=== PATIENT | male | born 1950 | race African-American/Black ===

== ENCOUNTER 2019-10-01 11:12 | Inpatient (IN) | payer OTHER ==
[~2019-10-01] VITALS: Ht 180.3 cm; Wt 82.3 kg
[2019-10-01 11:12] VITALS: BP 137/65
[2019-10-01 11:44] LABS: ABSOLUTE NEUTROPHILS 2.7 thou/uL (1.4-8.2); BASOPHILS 1.2 % (0.0-2.0); MCH 30.9 pg (26.0-34.0); MCHC 32.6 g/dL (28.0-37.0); MCV 94.7 fL (80.0-100.0); MONOCYTES 8.5 % (1.0-8.0); PLATELET COUNT 176 thou/uL (150-400); POLYS 51.3 % (36.0-66.0); RBC 4.54 mil/uL (4.50-6.00); RDW 13.5 % (10.5-14.5); WBC 5.3 thou/uL (4.0-11.0)
[2019-10-01 12:07] LABS: ANION GAP 10 mmol/L (7-16); BUN 20 mg/dL (7-18); CALCIUM 9.7 mg/dL (8.5-10.1); CHLORIDE 101 mmol/L (98-107); CO2 25 mmol/L (21-32); CREATININE 1.5 mg/dL (0.7-1.3); GLUCOSE 352 mg/dL (74-106); POTASSIUM 4.5 mmol/L (3.5-5.1); SODIUM 136 mmol/L (136-145)
[2019-10-01 12:17] LABS: SGOT 16 U/L (15-37); SGPT 27 U/L (30-65); TOTAL BILIRUBIN 0.5 mg/dL (<0.1-1.0); TOTAL PROTEIN 7.6 g/dL (6.4-8.2); TROPONIN-I <0.06 ng/mL (<0.06)
[2019-10-01] MEDS ORDERED: CRESTOR40 MG PO (12:36)
[2019-10-01] MEDS ORDERED: AMARYL4 MG PO (12:36)
[2019-10-01] MEDS ORDERED: LISINOPRIL2.5 MG PO (12:36)
[2019-10-01] MEDS ORDERED: ASA81BEC PO (12:38)
[2019-10-01] MEDS ORDERED: PLAVIX 75 MG TA75 MG PO (12:38)
[2019-10-01] MEDS ORDERED: METFORMIN HCL500 M3 PO (12:38)
[2019-10-01 12:53] VITALS: BP 151/76
[2019-10-01 13:01] VITALS: BP 123/67
--- NOTE | 2019-10-01 13:50 | NUR ---
REC PT AROUND 1330, A&0X4, AMB STEADY, NO CP AT THIS TIME, DENIES ANY KIND OF CHRONIC PAIN. ROOM AIR, TELE MONITORED. SEE SEPARATE INTERVENTIONS FOR ASSESSMENTS. WRAPPED RAC IV TO PREVENT IT FROM DISLODGING. PT TIRED YET APPEARS IN GOOD SPIRITS. WILL CONTINUE TO MONITOR
[2019-10-01 14:00] VITALS: BP 97/75
[2019-10-01 16:00] VITALS: BP 105/65
--- NOTE | 2019-10-01 16:49 | NUR ---
DIZZINESS: DAUGHTER REPORTS PT'S SPOUSE HAS MENTIONED PT HAS HAD SOME BOUTS OF DIZZINESS. PT AMB [facility]AD[facility], YET INSTRUCTED TO SIT AT [facility] AND CALL SHOULD HE HAVE ANY DIZZINESS TODAY AND WE'D AMBULATE WITH HIM. DAUGHTER GARY HAS OUR MAIN NUMBER AND LIKES UPDATES ON HER FATHER. GAVE HER INFO W/HIS PERMISSION. NO CP THUS FAR, NOR DIZZINESS. WILL CONTINUE TO MONITOR
[2019-10-01 20:59] VITALS: BP 113/60
[2019-10-02] VITALS (12 sets, daily range): BP systolic 116–134; BP diastolic 54–68
--- NOTE | 2019-10-02 05:42 | NUR ---
ASSUME CARE 1900. PT/VITALS STABLE. DENIES ANY CHEST PAIN AT THIS TIME. TOLERATES ACTIVITY WELL. NO SIGNS OF DISTRESS OR SOA NOTED. ASSESSMENT CHARTED. PROGRESSING WELL WITH POC. PLAN IS POSSIBLE CARDIAC CATH TODAY. WILL CONTINUE TO MONITOR ND FOLLOW WITH POC
[2019-10-02 05:58] LABS: HEMATOCRIT 38.3 % (42.0-52.0); HEMOGLOBIN 13.1 gm/dL (14.0-18.0); MCH 31.9 pg (26.0-34.0); MCHC 34.1 g/dL (28.0-37.0); MCV 93.4 fL (80.0-100.0); RBC 4.1 mil/uL (4.50-6.00); RDW 13.6 % (10.5-14.5); WBC 6.4 thou/uL (4.0-11.0)
[2019-10-02 06:27] LABS: CALCIUM 8.6 mg/dL (8.5-10.1); CREATININE 1.3 mg/dL (0.7-1.3); POTASSIUM 4.1 mmol/L (3.5-5.1)
--- NOTE | 2019-10-02 14:01 | NUR ---
ASSESSMENT: CM REVIEWED CHART AND SPOKE WITH PATIENT. PT IS ALERT AND ORIENTED X4. PT REPORTS LIVING IN A HOUSE WITH HIS . PT IS FULLY INDEPENDENT WITH ADLS AND AMBULATION. PT REPORTS THAT HE HAS A GRAB BAR IN THEIR SHOWER. PT STATES HE HAS NEVER HAD HH OR BEEN TO A SNF. PT WAS ADMITTED WITH CP AND CARDIOTHORACIC SURGERY IS CONSULTED. CM WILL CONTINUE TO FOLLOW TO ASSIST NEEDED.
--- NOTE | 2019-10-02 14:07 | 2DMMODE ---
[facility] [address] [place] [address] 2 D/M-MODE ECHOCARDIOGRAM Name: KARO DUQUE Room #: 218-P ADM IN M.R.#: [id number] Admission: 10/01/19 Attend Phys: Rosas Hughes MD Discharge: Date of : 50 Report #: [id number] THIS REPORT FOR: cc: Sukhi Seo Terry D. DO Lammoglia, Francisco J. MD ~ APPROVED REPORT Study performed: 10/02/2019 12:43:03 EXAM: Comprehensive 2D, Doppler, and color-flow Echocardiogram Patient Location: Bedside Room #: 218 Status: routine BSA: 2.02 HR: 51 bpm BP: 122/68 mmHg Rhythm: NSR Other Information Study Quality: Good/patient flat on back s/p heart cath. Indications CAD Chest Pain Hx: Stent, HTN, HLP, DM, CVA. 2D Dimensions RVDd: 33.57 mm IVSd: 9.60 (7-11mm) LVOT Diam: 21.61 (18-24mm) LVDd: 48.44 mm PWd: 9.91 (7-11mm) Ascending Ao: 28.78 (22-36mm) LVDs: 31.12 (25-40mm) Aortic Root: 32.44 mm Volumes Left Atrial Volume (Systole) Single Plane 4CH: 51.64 mL Single Plane 2CH: 51.09 mL LA ESV Index: 28.00 mL/m2 Aortic Valve AoV Peak Lorenzo.: 1.15 m/s AO Peak Gr.: 5.33 mmHg LVOT Max P.62 mmHg [facility] [address] [place] [address] 2 D/M-MODE ECHOCARDIOGRAM Name: KARO DUQUE Room #: 218-P [facility]#: [id number] Admission: 10/01/19 Attend Phys: Rosas Hughes MD Discharge: Date of : 50 Report #: [id number] LVOT Max V: 0.95 m/s DARRYL Vmax: 3.02 cm2 Mitral Valve E/A Ratio: 1.2 MV Decel. Time: 203.07 ms MV E Max Lorenzo.: 0.73 m/s MV A Lorenzo.: 0.60 m/s MV PHT: 58.89 ms IVRT: 69.20 ms Pulmonary Valve PV Peak Lorenzo.: 1.11 m/s PV Peak Gr.: 4.89 mmHg Pulmonary Vein P Vein S: 0.67 m/s P Vein A: 0.35 m/s P Vein D: 0.44 m/s P Vein A Dur.: 143.0 msec P Vein S/D Ratio: 1.52 Tricuspid Valve TR Peak Lorenzo.: 2.03 m/s RAP Estimate: 5.00 mmHg TR Peak Gr.: 17.00 mmHg PA Pressure: 22.00 mmHg Left Ventricle The left ventricle is normal size. There is normal LV segmental wall motion. There is normal left ventricular wall thickness. Left ventricular systolic function is normal. LVEF is 55-60%. The left ventricular diastolic function is normal. Right Ventricle The right ventricle is normal size. The right ventricular systolic function is normal. Atria The left atrium size is normal. The right atrium size is normal. Aortic Valve The aortic valve is normal in structure. Mildly thickened and calcified leaflets. No aortic regurgitation is present. There is no aortic valvular stenosis. Mitral Valve The mitral valve is normal in structure. Mild to moderate mitral regurgitation. [facility] [address] [place] [address] 2 D/M-MODE ECHOCARDIOGRAM Name: KARO DUQUE Room #: 218-P [facility] IN [facility].#: [id number] Admission: 10/01/19 Attend Phys: Rosas Hughes MD Discharge: Date of : 50 Report #: [id number] Tricuspid Valve The tricuspid valve is normal in structure. Trace tricuspid regurgitation. Estimated PAP is 20-25mmHg. Pulmonic Valve The pulmonary valve is normal in structure. Mild pulmonic regurgitation. Great Vessels The aortic root is normal in size. The ascending aorta is normal in size. IVC is normal in size and collapses >50% with inspiration. Pericardium There is no pericardial effusion. <Conclusion> The left ventricle is normal size. LVEF is 55-60%. The aortic valve is normal in structure. Mildly thickened and calcified leaflets. The mitral valve is normal in structure. Mild to moderate mitral regurgitation. The tricuspid valve is normal in structure. Trace tricuspid regurgitation. Estimated PAP is 20-25mmHg. The pulmonary valve is normal in structure. Mild pulmonic regurgitation. There is no pericardial effusion. <ELECTRONICALLY SIGNED> By: Anupam Villasenor MD 10/02/19 1406 1406 140 Anupam Villasenor MD /INF
[2019-10-02 14:57] LABS: APTT 25.4 Seconds (24.5-32.8); INR 1.1
--- NOTE | 2019-10-02 19:45 | NUR ---
A/O, calm and pleasant; catheter done, no signs of bleeding, tolerated well; patient stayed in bed flat until 3:30pm. reported blood in urine, the night nurse is aware.
[2019-10-02 21:38] LABS: URINE BILIRUBIN NEGATIVE (Negative); URINE BLOOD 3+ (Negative); URINE CLARITY CLEAR; URINE COLOR YELLOW; URINE GLUCOSE-RANDOM* NEGATIVE (Negative); URINE KETONES NEGATIVE (Negative); URINE NITRITE-REFLEX NEGATIVE (Negative); URINE PROTEIN (DIPSTICK) NEGATIVE (Negative); URINE SPECIFIC GRAVITY 1.015 (1.005-1.035); URINE UROBILINOGEN 0.2 E.U./dl (0.2-1.0)
[2019-10-02 22:05] LABS: URINE LEUKOCYTES-REFLEX 2+ (Negative)
[2019-10-02 22:07] LABS: GLYCOHEMOGLOBIN (HGB A1C) 8.2 % (4.8-5.6)
[2019-10-02 22:17] LABS: BACTERIA-REFLEX >30 Many /HPF (None Seen); CASTS None Seen /LPF (None Seen); CRYSTALS None Seen /LPF (None Seen); SQUAMOUS None Seen /LPF (0-3); URINE WBC-REFLEX 6-15 Few /HPF (0-5)
[2019-10-03 04:05] VITALS: BP 115/58
[2019-10-03 05:29] LABS: HEMATOCRIT 41.7 % (42.0-52.0); HEMOGLOBIN 14.3 gm/dL (14.0-18.0); MCH 31.9 pg (26.0-34.0); MCHC 34.2 g/dL (28.0-37.0); MCV 93.3 fL (80.0-100.0); RBC 4.47 mil/uL (4.50-6.00); RDW 13.2 % (10.5-14.5); WBC 7.1 thou/uL (4.0-11.0)
[2019-10-03 05:45] LABS: ANION GAP 6 mmol/L (7-16); BUN 17 mg/dL (7-18); CALCIUM 9.3 mg/dL (8.5-10.1); CHLORIDE 107 mmol/L (98-107); CO2 26 mmol/L (21-32); CREATININE 1.3 mg/dL (0.7-1.3); GLUCOSE 129 mg/dL (74-106); POTASSIUM 4.3 mmol/L (3.5-5.1); SODIUM 139 mmol/L (136-145); TROPONIN-I <0.06 ng/mL (<0.06)
[2019-10-03 07:00] VITALS: BP 138/59
--- NOTE | 2019-10-03 07:55 | NUR ---
ASSUME CARE 1900. PT/VITALS STABLE. DENIES ANY PAIN. TOLERATES ACTIVITY WELL. CADIAC CATH DONE WITH NO ITERVENTION. CABG NEEDED. PLAN IS FOR PT TO FOLLOW OUTPT WITH CARDIOTHORACIC SURGERY. POSIBLE DISCHARGE TODAY. WILL CONITNUE TO MONITOR AND FOLLOW WITH POC
[2019-10-03] MEDS ORDERED: TOPROL XL25 MG PO (10:46)
[2019-10-03 11:50] VITALS: BP 138/59
[2019-10-03 12:00] VITALS: BP 118/71
--- NOTE | 2019-10-03 20:17 | NUR ---
ASSUMED CARE OF PATIENT AT 0700. PATIENT IS A&O X 4. ASSESSMENT COMPLETED. TELE STRIPS PRINTED AND PLACED IN CHART. PATIENT DENIES ANY CHEST PAIN.PATIENT UP AD MARY BETH AND DENIES ANY PAIN. PATIENT RIGHT GROIN SITE IS CLEAR OF DRAINAGE, PAIN OR HEMATOMA. PATIENT TO D/C TODAY AND SEE DR. MEDEL OUTPATIENT TO FUTURE SCHEDULING OF CABG PROCEDURE. DISCHARGE PAPERWORK SIGNED. IV AND TELE REMOVED. PATIENT'S PICKED UP PATIENT AT ER ENTRANCE WHERE PATIENT WAS TAKEN VIA WHEELCHAIR.
--- NOTE | 2019-10-09 15:35 | HC ---
[facility] [place] [address] CONSULTATION Name: KARO DUQUE Room #: 218-P [facility] IN .R.#: [id number] Admission: 10/01/19 Attend Phys: Rosas Hughes MD Discharge: 10/03/19 Date of : 50 Report #: [id number] THIS REPORT FOR: cc: Sukhi Seo,Alex Wilder MD ~ CC: Rosas Seo DATE OF SERVICE: 10/02/2019 We were asked to see the patient by Dr. Villasenor. HISTORY OF PRESENT ILLNESS: The patient is a 69-year-old with coronary artery disease. The patient presents with new onset of exertional angina. The patient states that approximately 2 weeks ago, he had some chest discomfort when walking. The patient had a recrudescence of that same pain yesterday when fertilizing his lawn. The patient denies having had symptoms at rest. The patient denies having had symptoms prior to this. Pain was a mid-sternal discomfort that radiated down the left arm. No shortness of breath associated with it. We note that cardiac catheterization was done today and that shows a 50% left main coronary artery disease as well as 80% LAD, 99% circumflex and a 50% right coronary stenoses. Left ventricular function is satisfactory by echo. PAST MEDICAL HISTORY: Significant for hypertension. The patient has type 2 diabetes mellitus and hyperlipidemia. MEDIATIONS AT HOME: Rosuvastatin, lisinopril, glimepiride, metformin, Plavix, aspirin. ALLERGIES: HE IS ALLERGIC TO ATORVASTATIN, A RASH HAS OCCURRED. Previously, the patient had a stroke approximately 1 year ago that sounds like it was a vertebrobasilar or posterior circulation problem. The patient does not seem to have any important residual from this, but he was put on Plavix at that time. The patient also had a stent placed in the coronary arteries, approximately 10 years ago at [facility]. REVIEW OF SYSTEMS: CONSTITUTIONAL: Negative for fever, chills, weight change. EYES: Negative for vision change. HEENT: Negative for ear pain, hearing loss, headache. CARDIAC: As mentioned, chest pain, no palpitations. RESPIRATORY: Negative for cough or shortness of breath. [address] [address] CONSULTATION Name: KARO DUQUE Room #: 218-P [facility] IN [facility].#: [id number] Admission: 10/01/19 Attend Phys: Rosas Hughes MD Discharge: 10/03/19 Date of : 50 Report #: [id number] GASTROINTESTINAL: Negative for abdominal pain, nausea, vomiting blood. GENITOURINARY: Negative for urgency, frequency, or blood. The patient states that he had prostate surgery at [facility] approximately 10 years ago for cancer according to the patient. MUSCULOSKELETAL: No bone or joint pain. SKIN: No rash or infection. NEUROLOGIC: No new motor, sensory dysfunction. PHYSICAL EXAMINATION: GENERAL: The patient is lying in bed after his cardiac catheterization. VITAL SIGNS: Temperature 36.1, heart rate 60, respiratory rate 16, blood pressure 120/54. HEENT: No scleral icterus, no arcus. NECK: No mass, no bruit. CHEST: Clear. HEART: Rhythm is regular with occasional PVC. ABDOMEN: Soft, no mass. EXTREMITIES: No clubbing, cyanosis or edema. SKIN: No rash or infection. VASCULAR: 2+ popliteal pulses bilaterally, 1+ right posterior tibial, 2+ left posterior tibial. No obvious saphenous vein problems. MUSCULOSKELETAL: No bone or joint asymmetry or deformity. NEUROLOGIC: No obvious motor or sensory dysfunction. PSYCHIATRIC: The patient is oriented and appropriate, answers questions and has pleasant affect. IMPRESSION: The patient has 3-vessel coronary artery disease, exertional angina. He has been on Plavix up to this point. No obvious rest pain. I will review with Dr. Villasenor what his plans are with either medical management with surgery for progression of symptoms or if we should stop the Plavix and plan for interval surgery this admission. In any event, the risks and details of coronary artery bypass surgery were discussed with the patient. Risks include, but are not limited to, bleeding, infection, anesthesia risks, heart and lung problems, stroke, and . Options and alternatives were reviewed. The patient understands all of this and will exceed to our recommendations. We will proceed with ordering our typical preoperative studies so that we can be prepared in either event, we will also order a P2Y12 test to see if the patient is a responder to help us decide if we plan surgery, how long we need to wait. Thank you for the consult. <ELECTRONICALLY SIGNED> By: Alex Gamez MD 10/09/19 1535 1335 1412 Alex Gamez MD /nt
--- NOTE | 2019-10-13 19:15 | CATHLAB ---
[facility] [place] [address] INVASIVE PROCEDURE REPORT Name: KARO DUQUE Room #: 218-P [facility] IN .R.#: [id number] Admission: 10/01/19 Attend Phys: Rosas Hughes MD Discharge: 10/03/19 Date of : 50 Report #: [id number] THIS REPORT FOR: cc: Sukhi Seo Terry D. DO Lammoglia, Francisco J. MD ~ APPROVED REPORT Study performed: 10/02/2019 10:30:20 Patient Details Patient Status: In-Patient Room #: The patient is a 69 year-old male Event Personnel Anupam Villasenor Hemotherapist, Mahsa Ang RN RN, Aurora Pate Jackson, Sherra RTCésar Monitor Procedures Performed Art Access - R femoral artery* Left Heart Cath w/or w/o Coronaries [id number] [facility] [address] Initial Mod Sed Same Phys/QHP Gr 035303 86645 Mod Sed Same Phys/QHP Ea 018000 Hemostasis with Manual pressure, supervision of conscious sedation Indication Unstable angina (>24 hrs to = 48 hrs), Chest pain Risk Factors Coronary Artery Disease Previous Procedures/Diagnoses Previous PCI Procedure Narrative The Right Groin^ was infiltrated with 1% Lidocaine subcutaneous anesthesia. A PINNACLE 4FR Sheath #[id number] sheath was inserted into the RFA^. Coronary angiography was performed using coronary diagnostic catheters. The right coronary system was accessed and visualized with a JR4 catheter. The left coronary system was accessed and visualized with a JL4 catheter. The left ventricle was accessed and visualized with a JR4 catheter. Hemostasis was obtained with manual pressure following sheath removal without any complications. The patient tolerated the procedure well and there were no complications associated with the procedure. There was no [facility] [address] [place] [address] INVASIVE PROCEDURE REPORT Name: KARO DUQUE Room #: 218-P [facility]#: [id number] Admission: 10/01/19 Attend Phys: Rosas Hughes MD Discharge: 10/03/19 Date of : 50 Report #: [id number] hematoma. Intraoperative Conscious Sedation Sedation start time: 1045 Case end Time: 1114 Versed 2 mg Fluoro Time: 5.8 minutes Dose: DAP 7199.00 cGycm2 1279 mGy Contrast Type and Amount: Omnipaque 45 ml Coronary Angiography The patient's coronary anatomy is right dominant. Diagnostic Cath Left Main normal origin and caliber. Bifurcates left anterior descending left circumflex coronary artery. Percent eccentric lesion noted in its distal third that appears to be less than 50% stenosis. No flow-limiting lesions identified. LAD small caliber type II vessel which appears moderately calcified in the proximal third.eccentric lesion in the proximal portion which appears to be less than 50%. The vessel continues in the anterior interventricular sulcus giving rise to a small first diagonal branch after which there is a significant greater than 75% lesion of the LAD. The vessel then continues on in the mid and distal portion of the mid LAD as well as the distal LAD are with luminal irregularities and no high-grade lesions are present until it bifurcates into 2 string-like vessels at the apex Diagonal 1 diminutive caliber vessel with moderate to high-grade lesion at its origin and then proceeds anteriorly bifurcates into 2 string-like vessels Circumflex moderate caliber nondominant vessel which has a prior stent in the distal portion of the proximal circumflex. There is luminal irregularities noted but no obstructive lesions in the stent. Beyond the stent is a 50% lesion in the first marginal branch originates it has a high-grade ostial lesion. COMPLEX PROPER THEN CONTINUES IN THE AV grooveterminating his posterior wall branch OM1 this marginal branch is of moderate caliber vessel coursing along the low lateral aspect of the left ventricle. It is a high-grade stricture at 70% lesion in its origin and then proceeds and trifurcates in its proximal third into 3 lateral wall branches with luminal irregularities but no high-grade lesions beyond the ostial lesion Right Coronary moderate caliber vessel of normal origin courses in the AV groove giving rise to small atrial and ventricular branches. [facility] [address] [place] [address] INVASIVE PROCEDURE REPORT Name: KARO DUQUE Room #: 218-P [facility] IN M.R.#: [id number] Admission: 10/01/19 Attend Phys: Rosas Hughes MD Discharge: 10/03/19 Date of : 50 Report #: [id number] It then proceed to the crux of the heart rate is rise to small caliber descending artery. There is moderate to mild luminal irregularities throughout its entire course but no high-grade lesions present. The vessel itself is heavily calcified on fluoroscopic visualization R PDA small-caliber vessel with moderate to mild luminal irregularities but no high-grade obstructive lesions. Hemodynamics The aortic pressure is 118/64 mmHg with a mean of 93 mmHg. The left ventricular pressure is 122/4 mmHg with a mean of mmHg. The left ventricular end diastolic pressure is 11 mmHg. Conclusion 1. Coronary disease significant multivessel involving the proximal mid LAD, ostial first marginal branch and moderate irregularities of the right coronary artery and distal left main Artery 2. Abnormal hemodynamics with elevated left ventricular end-diastolic pressures Recommendations CABG in view of the patient being diabetic and having diffuse disease with mild left ventricular dysfunction and significant LAD and circumflex lesion is felt that better long-term results can be obtained with surgical revascularization <ELECTRONICALLY SIGNED> By: Anupam Villasenor MD 10/13/191912 12 12 Anupam Villasenor MD /INF
--- NOTE | 2019-10-23 11:48 | EKG ---
[facility] [place] [address] ELECTROCARDIOGRAM REPORT Name: KARO DUQUE Room #: 218-P [facility] IN M.R.#: [id number] Admission: 10/01/19 Attend Phys: Rosas Hughes MD Discharge: 10/03/19 Date of : 50 Report #: [id number] THIS REPORT FOR: cc: Sukhi Seo Terry D. DO Lundgren, Craig H. MD [facility] ~ THIS REPORT FOR: //name// [facility] ED Test Date: 2019-10-01 Test Time: 11:11:59 Pat Name: KARO DUQUE Department: Room: 218 Gender: M Transporter Radiology: ETHAN : 1950 Requested By: Rolando Valencia Order Number: [id number] MD: Manuel Noel Measurements Intervals [place] Rate: 75 P: 71 TX: 144 QRS: 78 QRSD: 96 T: 32 QT: 354 QTc: 396 Interpretive Statements Sinus rhythm Ventricular premature complex No previous ECG available for comparison Electronically Signed On 10-02-2019 8:13:45 CDT by Manuel Noel [email or web address] <ELECTRONICALLY SIGNED> By: Manuel Noel MD, FAC 10/02/19 0813 1111 1111 Manuel Noel MD, [facility] /EPI
== END 2019-10-03 12:48 | disposition home or self-care (01) | DRG 286 ==
LOC: ER 11:12 → EROBS 12:46 → 2N 12:46
PROVIDERS: Emergency Medicine; Internal Medicine; Physician Assistant; ADMIT Hospitalist
DX: I25.119 Atherosclerotic heart disease of native coronary artery with unspecified angina pectoris (principal); N17.0 Acute kidney failure with tubular necrosis; E78.5 Hyperlipidemia, unspecified; F17.210 Nicotine dependence, cigarettes, uncomplicated; E11.22 Type 2 diabetes mellitus with diabetic chronic kidney disease; N18.9 Chronic kidney disease, unspecified; I12.9 Hypertensive chronic kidney disease with stage 1 through stage 4 chronic kidney disease, or unspecified chronic kidney disease; Z86.73 Personal history of transient ischemic attack (TIA), and cerebral infarction without residual deficits; Z88.8 Allergy status to other drugs, medicaments and biological substances; Z95.5 Presence of coronary angioplasty implant and graft
CPT/HCPCS: 10081